=== PATIENT | female | born 1995 | race Caucasian/White ===

== ENCOUNTER 2023-02-14 10:35 | Emergency (ER) | payer OTHER ==
[2023-02-14 10:58] VITALS: BP 137/87; O2SAT 97
--- NOTE | 2023-02-14 11:01 | ED Physician Documentation ---
PD HPI UPPER EXT INJURY - Stated complaint Stated Complaint: HAND INJ, DOG BITE - Chief complaint Chief Complaint: Laceration - History obtained from History obtained from: Patient - History of Present Illness Location: Left, Hand Type of injury: Other (bit in hand/fingers by unknown dog. She was walking their dogs with her and an unknown dog came and started fighting with their dogs. Pt tried to reach in for her dogs, and was bit in hand. They took one of their dogs to vet for wound repair. Washed wounds at home and then came here.) Where injury occurred: Street (they have not reported it to Animal Control as yet.) Timing - onset: How many hours ago (1-2), Today Timing - details: Abrupt onset (bled initally. Not bleeding now. No numbness nor weakness. Tender at bite areas.) Worsened by: Moving, Palpating Associated symptoms: No: Weakness, Numbness Similar symptoms before: Has not had sx before Review of Systems Neurologic: denies: Focal weakness, Numbness PD PAST MEDICAL HISTORY - Past Medical History Cardiovascular: None Endocrine/Autoimmune: None - Present Medications Home Medications: Ambulatory Orders Medication Instructions Recorded Confirmed Amox/Clav 875/125 [Augmentin] 1 each PO BID #10 tablet 02/14/23 - Allergies Allergies/Adverse Reactions: Allergies Allergy/AdvReac Type Severity Reaction Status Date / Time No Known Drug Allergies Allergy Verified 02/14/23 10:50 PD ED PE NORMAL - Vitals Vital signs reviewed: Yes - General General: Alert and oriented X 3, No acute distress, Well developed/nourished - Derm Derm: Normal color, Warm and dry - Extremities Extremities: Other (left fingers and hand with punctures, no open lacs, no FB noted. No active bleeding. Normal color and cap refill at tips. ) - Neuro Neuro: No motor deficit, No sensory deficit Results - Vitals Vitals: Oxygen O2 Source Room air PD Medical Decision Making - ED course Complexity details: considered differential (ED nursing reported to [facility] office. They will follow up with the pt. TO give antibiotics due to concern for infection. Low risk of rabies here on [facility] so await Animal Control investigation. ), d/w patient Departure - Departure Disposition: 01 Home, Self Care Clinical Impression: Dog bite, hand Condition: Stable Record reviewed to determine appropriate education?: Yes Instructions: ED Bite Dog Prescriptions: Amox/Clav 875/125 [Augmentin] 1 each PO BID #10 tablet Comments: Cleanse the wounds couple times a day with soap and water and apply some antibiotic ointment or such. Watch for signs of infection. Because dog bites are high risk for infection and the consequences of infection to the fingers is higher, we typically would go with some antibiotics twice daily for the next several days. I sent a prescription for Augmentin to [facility] pharmacy. Tylenol or ibuprofen if needed for pains. We did contact the assistant manager pt's office/animal control. I presume they will contact you later today for more information, which is the common scenario. Forms: PCP List Discharge Date/Time: 02/14/23 12:22
[2023-02-14] MEDS ORDERED: AMOX/CLAV 875 MG/125 MG TABLET PO STA (11:21)
[2023-02-14] MEDS ORDERED: TETANUS/DIPHTHERIA/PERTUSSIS 0.5 ML SYRINGE IM ONE (11:21)
== END 2023-02-14 12:22 | disposition home or self-care (01) ==
LOC: ED 10:35
DX: S61.452A Open bite of left hand, initial encounter (principal); W54.0XXA Bitten by dog, initial encounter; Y93.K1 Activity, walking an animal; Y92.410 Unspecified street and highway as the place of occurrence of the external cause
CPT/HCPCS: 90471; 90715; 99283; A9270